=== PATIENT | male | born 1970 | race Caucasian/White ===

== ENCOUNTER 2020-08-23 22:05 | Emergency (ER) | payer SELFPAY ==
[~2020-08-23] VITALS: Ht 172.7 cm; Wt 61.2 kg
[2020-08-23 22:10] VITALS: Ht 172.7 cm; Wt 61.2 kg
[2020-08-23 23:49] LABS: BASOPHIL % 0.7 % (0-2); PLATELET COUNT 427 x10^3mcL (130-400); RED CELL DISTRIBUTION WIDTH 15.5 % (11.5-14.5)
[2020-08-24 00:01] LABS: CALCIUM 9.6 mg/dL (8.5-10.1); CARBON DIOXIDE 29.3 mmol/L (21-32); CHLORIDE SERUM 101 mmol/L (98-107); CREATININE SERUM 0.7 mg/dL (0.7-1.3); GFR1 > 60 mL/min; GLUCOSE SERUM 90 mg/dL (74-106); POTASSIUM SERUM 4.3 mmol/L (3.5-5.1); SODIUM SERUM 138 mmol/L (136-145)
[2020-08-24 00:13] LABS: ALBUMIN 4.2 g/dL (3.4-5.0); ALKALINE PHOSPHATASE 87 U/L (46-116); ALT/SGPT 34 U/L (16-63); AST/SGOT 23 U/L (15-37); BILIRUBIN TOTAL 0.4 mg/dL (0.20-1.00); T4(THYROXINE) 9.9 ug/dL (4.7-13.3)
[2020-08-24 02:13] LABS: AMPHETAMINE QUAL UR POSITIVE (See below)
[2020-08-24 06:03] VITALS: BP 125/80
== END 2020-08-24 06:03 | disposition home or self-care (01) ==
LOC: ED 22:05
PROVIDERS: Emergency Medicine
DX: F19.10 Other psychoactive substance abuse, uncomplicated (principal)
CPT/HCPCS: G0480

== ENCOUNTER 2020-08-24 18:34 | Emergency (ER) | payer SELFPAY ==
[~2020-08-24] VITALS: Ht 177.8 cm; Wt 72.6 kg
[2020-08-24 18:46] VITALS: Ht 177.8 cm; Wt 72.6 kg
[2020-08-24 19:18] LABS: PLATELET COUNT 402 x10^3mcL (130-400); RED CELL DISTRIBUTION WIDTH 15.9 % (11.5-14.5)
[2020-08-24 19:21] LABS: CALCIUM 8.9 mg/dL (8.5-10.1); CARBON DIOXIDE 32.1 mmol/L (21-32); CHLORIDE SERUM 101 mmol/L (98-107); CREATININE SERUM 0.8 mg/dL (0.7-1.3); GFR1 > 60 mL/min; GLUCOSE SERUM 106 mg/dL (74-106); POTASSIUM SERUM 4.1 mmol/L (3.5-5.1); SODIUM SERUM 141 mmol/L (136-145)
[2020-08-24 19:25] LABS: ALBUMIN 3.9 g/dL (3.4-5.0); ALKALINE PHOSPHATASE 85 U/L (46-116); ALT/SGPT 35 U/L (16-63); AST/SGOT 23 U/L (15-37); BILIRUBIN TOTAL 0.2 mg/dL (0.20-1.00); TOTAL PROTEIN, SERUM 7.6 g/dL (6.4-8.2)
[2020-08-24 19:51] LABS: AMPHETAMINE QUAL UR POSITIVE (See below)
[2020-08-24 20:03] VITALS: BP 170/104
== END 2020-08-24 20:03 | disposition home or self-care (01) ==
LOC: ED 18:34
PROVIDERS: Specialist
DX: F15.10 Other stimulant abuse, uncomplicated (principal); F17.210 Nicotine dependence, cigarettes, uncomplicated; Z71.6 Tobacco abuse counseling
CPT/HCPCS: 99406; G0480